=== PATIENT | male | born 1950 ===

== ENCOUNTER 2017-10-12 07:08 | Day surgery (SDC) | payer MEDICARE, OTHER ==
[2017-10-05 10:06] LABS: HEMATOCRIT 43.3 % (37.9-51.0); HEMOGLOBIN 14.4 g/dL (13.5-17.0); MEAN CORPUSCULAR HEMOGLOBIN 28.9 pg (27.0-33.4); MEAN CORPUSCULAR HGB CONC 33.3 g/dL (32.0-36.0); MEAN CORPUSCULAR VOLUME 87 fl (80-97); PLATELET COUNT 167 10^3/uL (150-450); RED BLOOD COUNT 4.98 10^6/uL (4.35-5.55); RED CELL DISTRIBUTION WIDTH 14.9 % (11.5-14.0)
[2017-10-05 10:19] LABS: APPEARANCE,URINE CLEAR; BILIRUBIN,URINE NEGATIVE (NEGATIVE); COLOR,URINE YELLOW; GLUCOSE, URINE 150 mg/dL (NEGATIVE); KETONES,URINE NEGATIVE (NEGATIVE); LEUKOCYTE ESTERASE,URINE NEGATIVE (NEGATIVE); NITRITE,URINE NEGATIVE (NEGATIVE); PROTEIN,URINE NEGATIVE (NEGATIVE)
[2017-10-05 10:39] LABS: INTERNATIONAL RATION (INR) 0.96; PROTHROMBIN TIME 13.3 SEC (11.4-15.4)
[2017-10-05 10:40] LABS: PARTIAL THROMBOPLASTIN TIME 30.4 SEC (23.5-35.8)
--- NOTE | 2017-10-05 13:20 | RADIOLOGY REPORT (SQ) ---
EXAM DESCRIPTION: CHEST PA/LATERAL COMPLETED DATE/TIME: 10/05/2017 9:23 am REASON FOR STUDY: PRE OP COMPARISON: None. EXAM PARAMETERS: NUMBER OF VIEWS: two views TECHNIQUE: Digital Frontal and Lateral radiographic views of the chest acquired. RADIATION DOSE: NA LIMITATIONS: none FINDINGS: LUNGS AND PLEURA: No opacities, masses or pneumothorax. No pleural effusion. MEDIASTINUM AND HILAR STRUCTURES: No masses or contour abnormalities. HEART AND VASCULAR STRUCTURES: Heart normal size. No evidence for failure. BONES: No acute findings. HARDWARE: None in the chest. OTHER: No other significant finding. IMPRESSION: NO SIGNIFICANT RADIOGRAPHIC FINDING IN THE CHEST. TECHNICAL DOCUMENTATION: JOB ID: [id number] [employer]- All Rights Reserved Reading location - IP/workstation name: [email or web address]
--- NOTE | 2017-10-05 13:35 | EKG REPORT ---
SEVERITY:- BORDERLINE ECG - SINUS RHYTHM BORDERLINE PROLONGED QT INTERVAL : Confirmed by: Juma Garcia MD 05-Oct-2017 13:34:38
[~2017-10-12 07:08] MED LIST: BUPIVACAINE HCL 0.25% /EPINEPHRINE INJ/PF 30 ML SDV ONE; CEFAZOLIN 1 GM/D5W RTU 1 GM/50 ML RTUPB IV SCH; FENTANYL CITRATE INJ/PF 100 MCG/2 ML AMPUL ONE; LACTATED RINGERS 1000 ML IV PRN; LIDOCAINE 0.5% INJ-PF (5 MG/ML) 50 ML SDV SUBCUT PRN; LIDOCAINE 1% INJ-PF (10 MG/ML) 30 ML SDV ONE; MIDAZOLAM 2 MG/2 ML INJ ONE; ONDANSETRON HCL INJ/PF 4 MG/2 ML SDV ONE; PROPOFOL INJ 200 MG/20 ML VIAL IV ONE; SODIUM BICARBONATE 8.4% INJ 50 MEQ/50 ML DISP.SYRIN ONE
[2017-10-12] MEDS ORDERED: FENTANYL CITRATE INJ/PF 100 MCG/2 ML AMPUL ONE ×2 (07:15→09:31)
[2017-10-12] MEDS ORDERED: MIDAZOLAM 2 MG/2 ML INJ ONE (07:16)
[2017-10-12] MEDS ORDERED: PROPOFOL INJ 200 MG/20 ML VIAL IV ONE (07:16)
[2017-10-12] MEDS ORDERED: ONDANSETRON HCL INJ/PF 4 MG/2 ML SDV ONE (07:16)
[2017-10-12 07:55] LABS: POTASSIUM 4.1 mmol/L (3.6-5.0)
[2017-10-12] MEDS ORDERED: BUPIVACAINE HCL 0.5%-EPI 1:200000 INJ/PF 30 ML VIAL ONE (08:14)
[2017-10-12] MEDS ORDERED: DIPHENHYDRAMINE HCL 50 MG/ML VIAL IV PRN (08:24)
[2017-10-12] MEDS ORDERED: FENTANYL CITRATE INJ/PF 100 MCG/2 ML AMPUL IV PRN ×3 (08:24)
[2017-10-12] MEDS ORDERED: MORPHINE SULFATE 10 MG/ML INJ IV PRN (08:24)
[2017-10-12] MEDS ORDERED: MEPERIDINE HCL/PF INJ 25 MG/1 ML DISP.SYRIN IV PRN (08:24)
[2017-10-12] MEDS ORDERED: PROMETHAZINE HCL INJ 25 MG/1 ML VIAL IV PRN (08:24)
[2017-10-12] MEDS ORDERED: CEFAZOLIN INJ 1 GM VIAL ONE (09:31)
[2017-10-12] MEDS ORDERED: OXYCODONE-ACETAMINOPHEN 5-325 MG TABLET PO PRN (09:32)
--- NOTE | 2017-10-12 10:29 | OPERATIVE REPORT E ---
Operative Report NAME: DIONICIO BOB : [id number] AGE: 67Y DATE OF SURGERY: 10/12/2017 ROOM: PREOPERATIVE DIAGNOSES: 1. Post laminectomy pain syndrome. 2. Lumbar radiculopathy. POSTOPERATIVE DIAGNOSES: 1. Post laminectomy pain syndrome. 2. Lumbar radiculopathy. PROCEDURE: Spinal cord stimulator implantation with dual lead electrode [employer] system. SURGEON: STEPHANIE AMAYA M.D. LOG CUT OFF SAWYER: RIAZ DEGROOT M.D. ANESTHESIA: MAC. COMPLICATIONS: None. PROCEDURE IN DETAIL: After obtaining informed consent, I advised the patient of all the risks and benefits, including serious neurological injury, bleeding, infection, spinal fluid leak, allergic reaction, paralysis, nerve injury, , and failure to obtain satisfactory relief. He was taken to the operating room and placed comfortably in the prone position. MAC anesthesia was administered. After application of monitoring, he was then prepped with Chloraprep x2 and then draped. After appropriate drying time and waiting, he was then evaluated with fluoroscopy. An adequate space was found at L1-L2. The skin over both the pre-marked buttock incision on the right and the midline were anesthetized with 1% lidocaine with bicarbonate followed by 0.25% bupivacaine with epinephrine. Beginning at the midline incision, sharp and blunt dissection was formed down to the fascia. Using a left paramedian approach, a 14-gauge Tuohy needle was placed into the epidural space at L1-L2. Loss of resistance to saline technique was utilized. The electrode bands under fluoroscopic guidance at the top of T8, being positioned in the midline. A second lead was placed through a second needle using the same technique with loss of resistance using the right paramedian approach on the right side. Lateral views were taken and showed satisfactory placement. These were then tested and appropriate stimulation bilaterally to both extremities was found, after discussion with the patient. Once again, the leads were then secured using pursestrings with anchors in place. The anchors were then sutured in place. The needles were removed sequentially confirming *------*. The pursestrings were secured and the anchor was placed and secured as well. While lead positioning was occurring, Dr. Riaz Degroot was assisting, creating the pocket for the new pulse generator. As soon as the pocket was made, proper hemostasis was confirmed. The skin between the midline and buttock incision was anesthetized using 1% lidocaine and tunneling tool was then performed to connect the 2 pockets and the left lead was then marked. Both incisions were felt to be satisfactory and proper hemostasis was confirmed. The wires were easily placed in the midline and stitched to the pocket and connected to the pulse generator, which was then tested and appropriate communication was made. All connections were secured. The generator was then placed in the pocket and assessed and found to be satisfactory. Position again was checked via fluoroscopy in both the lateral and AP views. The wounds were then copiously irrigated. The areas were then closed with interrupted vertical mattress suture using 3-0 Vicryl. Diana were used in the midline and tape and Dermabond along the buttock incision. An OpSite dressing was then placed over the tape. The patient was then taken to the PACU for further postoperative wound care and management and will be seen in clinic tomorrow. DICTATING PHYSICIAN: STEPHANIE AMAYA M.D. [id number] PHY#: [id number] ID: [id number] JOB#: [id number] ACCT: [id number] cc:STEPHANIE AMAYA M.D. >
[2017-10-12 12:53] VITALS: BP 106/68
--- NOTE | 2017-10-12 15:48 | RADIOLOGY REPORT (SQ) ---
EXAM DESCRIPTION: NO CHG FLUORO; THORACOLUMBAR SPINE AP/LAT COMPLETED DATE/TIME: 10/12/2017 3:11 pm REASON FOR STUDY: SPINAL STIMULATOR PLCMT ASST WITH FLUORO IN OR COMPARISON: None. FLUOROSCOPY TIME: 2 minutes 11 Images saved to PACS LIMITATIONS: None. PROCEDURE: Placement of neural stimulator electrodes FINDINGS: 11 images obtained with fluoro document the placement of neural stimulator electrodes in t he thoracic spine. IMPRESSION: Neurostimulator electrode placement. COMMENT: PQRS 6045F: Fluoroscopy time of the procedure is documented in the report. TECHNICAL DOCUMENTATION: JOB ID: [id number] [employer]- All Rights Reserved Reading location - IP/workstation name: [email or web address]
--- NOTE | 2017-10-12 15:48 | RADIOLOGY REPORT (SQ) ---
EXAM DESCRIPTION: NO CHG FLUORO; THORACOLUMBAR SPINE AP/LAT COMPLETED DATE/TIME: 10/12/2017 3:11 pm REASON FOR STUDY: SPINAL STIMULATOR PLCMT ASST WITH FLUORO IN OR COMPARISON: None. FLUOROSCOPY TIME: 2 minutes 11 Images saved to PACS LIMITATIONS: None. PROCEDURE: Placement of neural stimulator electrodes FINDINGS: 11 images obtained with fluoro document the placement of neural stimulator electrodes in t he thoracic spine. IMPRESSION: Neurostimulator electrode placement. COMMENT: PQRS 6045F: Fluoroscopy time of the procedure is documented in the report. TECHNICAL DOCUMENTATION: JOB ID: [id number] [employer]- All Rights Reserved Reading location - IP/workstation name: [email or web address]
== END 2017-10-12 11:20 | disposition home or self-care (01) ==
LOC: OROUT 07:08
PROVIDERS: ATTEND Student in an Organized Health Care Education/Training Program
DX: M51.37 Other intervertebral disc degeneration, lumbosacral region (principal); M54.5 Low back pain; M54.17 Radiculopathy, lumbosacral region; G89.4 Chronic pain syndrome; J45.909 Unspecified asthma, uncomplicated; E78.5 Hyperlipidemia, unspecified; I10 Essential (primary) hypertension; M19.90 Unspecified osteoarthritis, unspecified site; E11.9 Type 2 diabetes mellitus without complications; Z79.01 Long term (current) use of anticoagulants; Z79.899 Other long term (current) drug therapy; Z79.891 Long term (current) use of opiate analgesic; Z79.82 Long term (current) use of aspirin; I25.2 Old myocardial infarction
CPT/HCPCS: 63650; 63685; C1820; 1936; 36415; 71046; 72080; 81001; 82947; 84132; 85027; 85610; 85730; 93005; 93010; C1778; J0690; J2250; J2405; J2704; J3010; J3490